=== PATIENT | male | born 1985 | race Caucasian/White ===

== ENCOUNTER → 2023-07-08 | Outpatient (CLI) | payer OTHER ==
[~2023-07-08] MED LIST: METHACHOLINE KIT INH ONE
== END ==
LOC: M CARPUL 07:25
PROVIDERS: ATTEND Nurse Practitioner Family
DX: R06.02 Shortness of breath (principal)
CPT/HCPCS: 94070; J7674

== ENCOUNTER → 2023-07-13 | Outpatient (CLI) | payer OTHER | LOC: M RAD 07:33 | PROVIDERS: ATTEND Nurse Practitioner Family | DX: R06.02 Shortness of breath (principal); F17.210 Nicotine dependence, cigarettes, uncomplicated; Z65.5 Exposure to disaster, war and other hostilities ==

== ENCOUNTER → 2023-09-27 | Outpatient (REF) | payer OTHER ==
[~2023-09-27] MED LIST changes: +GABA-1171; -METHACHOLINE KIT INH ONE; +PANT40TA29; +SILD50TA2; +TIZA10TA
== END ==
LOC: M LAB REF 16:16
PROVIDERS: ATTEND Physician Assistant
DX: J02.9 Acute pharyngitis, unspecified (principal)

== ENCOUNTER 2023-09-28 09:16 | Emergency (ER) | payer OTHER ==
[~2023-09-28] VITALS: Ht 182.9 cm; Wt 110.8 kg
[2023-09-28] MEDS ORDERED: GABA-1171 (09:24)
[2023-09-28] MEDS ORDERED: SILD50TA2 (09:24)
[2023-09-28] MEDS ORDERED: TIZA10TA (09:24)
[2023-09-28] MEDS ORDERED: PANT40TA29 (09:24)
[2023-09-28] MEDS ORDERED: PANTOPRAZOLE 40MG VIAL IV ONE (11:25)
[2023-09-28] MEDS ORDERED: SUCRALFATE 1 GM TAB PO ONE (11:25)
[2023-09-28] MEDS ORDERED: HYOSCYAMINE SULFATE 0.125 MG SUBL TABLET PO ONE (11:25)
[2023-09-28] MEDS ORDERED: MAALOX 30 ML SUSP *UDC PO ONE (11:25)
[2023-09-28 11:53] LABS: BASO # 0.1 10^3/uL (0.0-0.2); BASO % 0.9 % (0.0-1.0); EOS # 0.5 10^3/uL (0.0-0.5); EOS % 3.9 % (0.0-3.0); HEMOGLOBIN 14.6 g/dl (13.5-17.5); MEAN CORPUSCULAR HEMOGLOBIN 33.2 pg (27.0-33.0); MEAN CORPUSCULAR HGB CONC 34.8 g/dl (32.0-36.5); MEAN CORPUSCULAR VOLUME 95.5 fl (80.0-96.0); MONO # 1.3 10^3/uL (0.0-0.8); MONO % 9.6 % (2.0-8.0); NEUTROPHILS # 8.5 10^3/uL (1.5-8.5); NEUTROPHILS % 63.1 % (36.0-66.0); PLATELET COUNT, AUTOMATED 259 10^3/uL (150-450); WHITE BLOOD COUNT 13.4 10^3/uL (4.0-10.0)
[2023-09-28 12:18] LABS: ALBUMIN 3.7 G/DL (3.2-5.2); BILIRUBIN,DIRECT 0.1 MG/DL (<0.4); BILIRUBIN,TOTAL 0.5 MG/DL (0.3-1.2); TOTAL PROTEIN 7.1 G/DL (5.7-8.2)
[2023-09-28] MEDS ORDERED: NS 1,000 ML IV ONE (12:30)
[2023-09-28] MEDS ORDERED: ONDANSETRON 4MG 2ML VIAL IV ONE (12:30)
[2023-09-28] MEDS ORDERED: ISOVUE-370 76% 100ML VIAL As Ordered ONE (12:46)
[2023-09-28 16:11] VITALS: BP 137/91; TEMP 98.1; O2SAT 98
== END 2023-09-28 16:13 | disposition home or self-care (01) ==
LOC: M ED 09:16
DX: K85.90 Acute pancreatitis without necrosis or infection, unspecified (principal); F17.200 Nicotine dependence, unspecified, uncomplicated; Z79.891 Long term (current) use of opiate analgesic; Z79.899 Other long term (current) drug therapy
CPT/HCPCS: 71045; 74177; 76705; 80047; 80076; 83690; 85025; 87880; 96361; 96374; 96375; 99284; C9113; J2405; Q9967

== ENCOUNTER → 2023-11-15 | Outpatient (CLI) | payer OTHER | LOC: M PLAIMG 08:15 | PROVIDERS: ATTEND Nurse Practitioner Family | DX: R91.8 Other nonspecific abnormal finding of lung field (principal) ==